=== PATIENT | female | born 1970 | race Caucasian/White ===

== ENCOUNTER 2023-04-22 09:25 | Emergency (ER) | payer OTHER, SELFPAY ==
[2023-04-22 09:41] VITALS: BP 150/95; PULSE 120; RESP 24; TEMP 36.6; O2SAT 96; BMI 26.6
--- NOTE | 2023-04-22 09:52 | XR_ITS ---
The [address] [address] Patient Name: RASHARD ZHANG MRN: [id number] date: 1970 Sex: F Assigned Patient Location: ER Current Patient Location: ED.MAIN Accession/Order Number: [id number] Exam Date: 04/22/2023 10:13 Report Date: 04/22/2023 11:04 At the request of: MEGGAN SINGH Procedure: XR chest 1V FRONTAL CHEST; 04/22/2023 10:13 AM EDT Clinical History:SOB Comparison: None available . AP portable upright film. Osseous structures are grossly intact. Cardiac and mediastinal silhouettes are unremarkable. The eladia are symmetric. No infiltrate or effusion. No failure pattern. Nonspecific radiopaque foreign body projects over the upper abdomen to the left. XR/XR chest 1V IMPRESSION: 1. No infiltrate, effusion, or failure. Electronically authenticated by: PERFECTO HAYS Date: 04/22/2023 11:04
--- NOTE | 2023-04-22 09:52 | ECG_ITS ---
The [facility] Test Date: 2023-04-22 Pat Name: RASHARD ZHANG Department: Room: - Gender: Female Mobile Nurse: : 1970 Requested By: Order Number: [id number] Reading MD: JULIO CASTILLO Measurements Intervals Harvey Rate: 112 P: 139 AR: 204 QRS: 10 QRSD: 90 T: 150 QT: 334 QTc: 400 Interpretive Statements 1220 Rapid atrial rhythm 1969 with occasional ectopic premature complexes 4564 Twave abnormality, possible lateral ischemia 9150 abnormal ECG Compared to ECG 09/12/2021 23:00:27 Possible ischemia now present Sinus rhythm no longer present Electronically Signed On 04-22-2023 17:26:16 EDT by JULIO CASTILLO
[2023-04-22] MEDS: 0.9 % SODIUM CHLORIDE 1,000 ML 1000 ML IV (10:16)
[2023-04-22 10:21] LABS: Basophils Absolute Auto 0.1 10^3/uL (0.0-0.1); Basophils Percent Auto 0.7 % (0.2-2.0); Eosinophils Absolute Auto 0.1 10^3/uL (0.0-0.7); Eosinophils Percent Auto 1.9 % (0.9-7.0); Hemoglobin 11.7 g/dL (12.0-16.0); Immature Granulocytes Abs Auto 0.07 10^3/uL (0.00-0.03); Lymphocytes Absolute Auto 1.2 10^3/uL (1.2-3.8); Mean Corpuscular HGB Conc 34.4 g/dL (29.9-35.2); Mean Corpuscular Hemoglobin 36.2 pg (26.7-34.0); Mean Corpuscular Volume 105.3 fL (81.0-99.0); Mean Platelet Volume 11.6 fL (9.5-13.5); Monocytes Absolute Auto 0.6 10^3/uL (0.3-0.8); Monocytes Percent Auto 8.1 % (1.7-12.0); Neutrophils Absolute Auto 5.2 10^3/uL (1.4-6.5); Neutrophils Percent Auto 71.3 % (43.0-75.0); Platelet Count 121 10^3/uL (150-450); Red Blood Count 3.23 10^6/uL (4.20-5.40); Red Cell Distribution Width 18.5 % (11.0-15.0); White Blood Count 7.2 10^3/uL (4.0-11.0)
[2023-04-22 10:33] LABS: Alanine Aminotransferase 22 U/L (14-59); Albumin Globulin Ratio 0.5; Albumin Level 2.5 g/dL (3.4-5.0); Alkaline Phosphatase 127 U/L (46-116); Amylase 62 U/L (25-115); Anion Gap 17.5; Aspartate Amino Transferase 84 U/L (15-37); BUN Creatinine Ratio 9.1; Bilirubin Total 9.3 mg/dL (0.2-1.0); Calcium 8.4 mg/dL (8.5-10.1); Carbon Dioxide 22.6 mmol/L (21.0-32.0); Chloride 101 mmol/L (98-107); Estimated GFR (African America 56 (>=60); Estimated GFR (Non-African Ame 47 (>=60); Globulin 5.2 g/dL; Glucose 131 mg/dL (74-106); Potassium 3.1 mmol/L (3.5-5.1); Sodium 138 mmol/L (136-145); Total Protein 7.7 g/dL (6.4-8.2)
[2023-04-22 10:35] LABS: Ethanol <3 mg/dL
--- NOTE | 2023-04-22 11:05 | ED_ITS ---
HPI - General Adult General Chief complaint: Shortness of Breath/Dyspnea Stated complaint: SHORTNESS OF BREATH Time Seen by Provider: 04/22/23 09:41 Source: patient Mode of arrival: Wheelchair History of Present Illness HPI narrative: 53-year-old female presents for vague complaints. She complains of shortness of breath and abdominal pain. She asked her to leave and then told me that she had eaten a marijuana gummy last night and it is making her anxious. She took her gabapentin this morning but then thinks she may have taken a second 1 but she is not sure. No fever or vomiting. Related Data Previous Rx's Medication Instructions Recorded cephalexin 500 mg capsule 500 mg PO TID 7 days #21 caps 04/22/23 Allergies Allergy/AdvReac Type Severity Reaction Status Date / Time No Known Drug Allergies Allergy Verified 04/22/23 09:44 Review of Systems ROS Narrative A ten point review of systems is negative except as noted above. Exam Narrative Exam Narrative: Nurses note and vital signs reviewed and patient is not hypoxic. General: The patient appears in no acute respiratory distress. She is tearful. Skin: Warm, dry, no pallor noted. There is no rash noted. Mild jaundice present Head: Normocephalic, atraumatic Eye: Sclera mildly icteric Ears, Nose, Mouth, and Throat: oral mucosa is moist. Nares patent. Mouth without vesicles. Ear canals patent. Tm's without Erythema Cardiovascular: Regular Rate and Rhythm Respiratory: Patient is in no distress, no accessory muscle use, lungs are bettina ar to auscultation, no wheezing, rales or rhonchi Back: non-tender GI: Soft and nondistended Musculoskeletal: The patient has no evidence of calf tenderness, symmetrical pulses noted bilaterally Neurological: A&O, normal speech Psychiatric: Cooperative and tearful Constitutional Vital Signs, click to edit/add: Last Vital Signs Temp 98 F 04/22/23 09:41 Pulse 120 H 04/22/23 09:41 Resp 24 04/22/23 09:41 BP 150/95 H 04/22/23 09:41 Pulse Ox 96 04/22/23 09:41 O2 Del Method Room Air 04/22/23 09:41 Course Vital Signs Vital signs: Vital Signs Temperature 98 F 04/22/23 09:41 Pulse Rate 120 H 04/22/23 09:41 Respiratory Rate 24 04/22/23 09:41 Blood Pressure 150/95 H 04/22/23 09:41 Pulse Oximetry 96 04/22/23 09:41 Oxygen Delivery Method Room Air 04/22/23 09:41 Temperature 98 F 04/22/23 09:41 Pulse Rate 120 H 04/22/23 09:41 Respiratory Rate 24 04/22/23 09:41 Blood Pressure 150/95 H 04/22/23 09:41 Pulse Oximetry 96 04/22/23 09:41 Oxygen Delivery Method Room Air 04/22/23 09:41 Medical Decision Making MDM Narrative Medical decision making narrative: The patient's workup indicates UTI. Blood work is nonspecific. She has chronic cirrhosis and sees a account development specialist in [place]. She had requested a prescription for Xanax and the patient's stated that she had a prescription sent in 2 days ago but the pharmacy has not filled it yet. I have declined to write her for more Xanax or other benzodiazepine. Differential Diagnosis Differential Diagnosis: UTI, dehydration, chronic cirrhosis, substance abuse Lab Data Lab results reviewed: Yes I reviewed the patient's lab results Labs: Lab Results 04/22/23 04/22/23 Range/Units 10:11 11:47 WBC 7.2 (4.0-11.0) 10^3/uL RBC 3.23 L (4.20-5.40) 10^6/uL Hgb 11.7 L (12.0-16.0) g/dL Hct 34.0 L (36.0-48.0) % MCV 105.3 H (81.0-99.0) fL MCH 36.2 H (26.7-34.0) pg MCHC 34.4 (29.9-35.2) g/dL RDW 18.5 H (11.0-15.0) % Plt Count 121 L (150-450) 10^3/uL MPV 11.6 (9.5-13.5) fL Neut % (Auto) 71.3 (43.0-75.0) % Lymph % (Auto) 17.0 L (20.5-60.0) % [place] % (Auto) 8.1 (1.7-12.0) % Eos % (Auto) 1.9 (0.9-7.0) % Baso % (Auto) 0.7 (0.2-2.0) % Neut # (Auto) 5.2 (1.4-6.5) 10^3/uL Lymph # (Auto) 1.2 (1.2-3.8) 10^3/uL [place] # (Auto) 0.6 (0.3-0.8) 10^3/uL Eos # (Auto) 0.1 (0.0-0.7) 10^3/uL Baso # (Auto) 0.1 (0.0-0.1) 10^3/uL Abs Immat Gran (auto) 0.07 H (0.00-0.03) 10^3/uL Imm/Tot Granulo (auto) 1.0 H (0.0-0.5) % Sodium 138 (136-145) mmol/L Potassium 3.1 L (3.5-5.1) mmol/L Chloride 101 (98-107) mmol/L Carbon Dioxide 22.6 (21.0-32.0) mmol/L Anion Gap 17.5 BUN 11.0 (7.0-18.0) mg/dL Creatinine 1.21 H (0.55-1.02) mg/dL Est GFR ( Amer) 56 L (>=60) Est GFR (Non-Af Amer) 47 L (>=60) BUN/Creatinine Ratio 9.1 Glucose 131 H (74-106) mg/dL Calcium 8.4 L (8.5-10.1) mg/dL Total Bilirubin 9.3 H (0.2-1.0) mg/dL Direct Bilirubin 3.0 H* (0.0-0.2) mg/dL AST 84 H (15-37) U/L ALT 22 (14-59) U/L Alkaline Phosphatase 127 H (46-116) U/L Total Protein 7.7 (6.4-8.2) g/dL Albumin 2.5 L (3.4-5.0) g/dL Globulin 5.2 g/dL Albumin/Globulin Ratio 0.5 Amylase 62 (25-115) U/L Lipase 56.0 (16.0-77.0) U/L Urine Color Yellow (YELLOW) Urine Clarity Clear (CLEAR) Urine pH 6.5 (5.0-9.0) Ur Specific [place] 1.010 (1.005-1.025) Urine Protein Negative (NEG/TRACE) mg/dL Urine Glucose (UA) Negative (NEGATIVE) mg/dL Urine Ketones Negative (NEGATIVE) mg/dL Urine Occult Blood Negative (NEGATIVE) Urine Nitrite Positive A (NEGATIVE) Urine Bilirubin Moderate A (NEGATIVE) Urine Urobilinogen >=8.0 (0.2-1.0) EU/dL Ur Leukocyte Esterase Large A (NEGATIVE) Urine RBC 0-2 (0-2) #/HPF Urine WBC 10-20 A (NONE SEEN) #/HPF Ur Squamous Epith Cells Moderate A (NONE/RARE) #/LPF Urine Crystals None seen (None Seen) #/HPF Urine Bacteria Moderate A (NONE SEEN) #/HPF Urine Casts None seen (NONE SEEN) #/LPF Urine Mucus None seen (NONE SEEN) Urine Opiates Screen Negative (NEGATIVE) Ur Buprenorphine Scrn Negative (NEGATIVE) Ur Oxycodone Screen Negative (NEGATIVE) Urine Methadone Screen Negative (NEGATIVE) Ur Barbiturates Screen Negative (NEGATIVE) U Tricyclic Antidepress Negative (NEGATIVE) Ur Phencyclidine Scrn Negative (NEGATIVE) Ur Amphetamines Screen Negative (NEGATIVE) U Methamphetamines Scrn Negative (NEGATIVE) U Benzodiazepines Scrn Positive A (NEGATIVE) Urine Cocaine Screen Negative (NEGATIVE) U Cannabinoids Screen Positive A (NEGATIVE) Ethanol Quant <3 mg/dL Imaging Data Chest x-ray: Radiologist's impression: ITS Impressions Chest X-Ray 04/22/23 09:52 IMPRESSION: 1. No infiltrate, effusion, or failure. Electronically authenticated by: PERFECTO HAYS Date: 04/22/2023 11:04 ECG Data Attestation: I personally reviewed and interpreted this ECG as follows: (EKG on my interpretation shows sinus rhythm with a rate of 112) Discharge Plan Discharge Stand Alone Forms: Portal Instructions Chief Complaint: Shortness of Breath/Dyspnea Clinical Impression: Urinary tract infection Patient Disposition: Home, Self-Care Time of Disposition Decision: 13:12 Condition: Good Mode of Transportation: Private Vehicle Prescriptions / Home Meds: New cephalexin 500 mg capsule 500 mg PO TID 7 Days Qty: 21 0RF Instructions: Urinary Tract Infection in Women (DC) Referrals: Physician,Non-Staff, MD [Primary Care Provider] - 1 week
[2023-04-22 12:16] LABS: Bilirubin Urine MODERATE (NEGATIVE); Blood Urine NEGATIVE (NEGATIVE); Clarity Urine CLEAR (CLEAR); Color Urine YELLOW (YELLOW); Glucose Urine UA NEGATIVE (NEGATIVE); Ketones Urine NEGATIVE (NEGATIVE); Leukocyte Esterase Urine LARGE (NEGATIVE); Nitrite Urine POSITIVE (NEGATIVE); Protein Urine NEGATIVE (NEG/TRACE); Urobilinogen Urine >=8.0 EU/dL (0.2-1.0); pH Urine 6.5 (5.0-9.0)
[2023-04-22 12:27] LABS: Amphetamine Screen Urine NEGATIVE (NEGATIVE); Barbiturates Screen Urine NEGATIVE (NEGATIVE); Benzodiazepines Screen Urine POSITIVE (NEGATIVE); Buprenorphine Screen Urine NEGATIVE (NEGATIVE); Cannabinoid Screen Urine POSITIVE (NEGATIVE); Cocaine Screen Urine NEGATIVE (NEGATIVE); Methadone Screen Urine NEGATIVE (NEGATIVE); Methamphetamines Screen Urine NEGATIVE (NEGATIVE); Opiate Screen Urine NEGATIVE (NEGATIVE); Oxycodone Screen Urine NEGATIVE (NEGATIVE); Phencyclidine Screen Urine NEGATIVE (NEGATIVE); Tricyclic Antidepressant Urine NEGATIVE (NEGATIVE)
[2023-04-22 12:28] LABS: Bacteria Urine MODERATE #/HPF (NONE SEEN); Cast Seen? NONE SEEN #/LPF (NONE SEEN); Crystals Seen? None Seen #/HPF (None Seen); Mucus Urine NONE SEEN (NONE SEEN); RBC Urine 0-2 #/HPF (0-2); Squamous Epithelial Cell Urine MODERATE #/LPF (NONE/RARE)
[2023-04-22] MEDS: CEFTRIAXONE 1,000 MG in 0.9 % SODIUM CHLORIDE 50 ML 100 MG IV (13:03)
== END 2023-04-22 13:29 | disposition home or self-care (01) ==
PROVIDERS: Emergency Provider Emergency Medicine
DX: N39.0 Urinary tract infection, site not specified (principal); K74.60 Unspecified cirrhosis of liver; Z79.899 Other long term (current) drug therapy
CPT/HCPCS: 36415; 71045; 80048; 80076; 80307; 80320; 81001; 82150; 83690; 85025; 93005; 96374; 99285